=== PATIENT | male | born 1980 | race Caucasian/White ===

== ENCOUNTER 2019-02-09 20:55 | Emergency (ER) | payer OTHER, SELFPAY ==
[~2019-02-09] VITALS: Ht 188 cm; Wt 87.4 kg
[2019-02-09 21:01] VITALS: BP 142/83
[2019-02-09] MEDS ORDERED: HYDROcodone/APAP 5/325 TABLET PO ONE (22:00)
[2019-02-09] MEDS ORDERED: HYDROcodone/APAP 5/325 TABLET ONE (22:08)
== END 2019-02-09 22:42 | disposition home or self-care (01) ==
LOC: ED 22:15
DX: S92.414A Nondisplaced fracture of proximal phalanx of right great toe, initial encounter for closed fracture (principal); S93.621A Sprain of tarsometatarsal ligament of right foot, initial encounter; W01.0XXA Fall on same level from slipping, tripping and stumbling without subsequent striking against object, initial encounter; Y93.89 Activity, other specified; Y92.009 Unspecified place in unspecified non-institutional (private) residence as the place of occurrence of the external cause; Y99.8 Other external cause status
CPT/HCPCS: 29515; 99283